=== PATIENT | female | born 1945 | race Caucasian/White ===

== ENCOUNTER 2018-08-05 15:39 | Emergency (ER) | payer MEDICARE, SELFPAY ==
[2018-08-05 15:41] VITALS: BP 183/73; PULSE 64; RESP 18; TEMP 36.8; O2SAT 99; BMI 31.6
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
[2018-08-05 17:00] LABS: Carboxyhemoglobin Frac (CO) 1.3 % (0.0-1.5)
[2018-08-05 17:33] LABS: Mucous, Urine 0 SEEN /hpf (<or=2+); Red Blood Cells-Urine 0 SEEN /hpf (0-5); Squamous Epithelial Cells - UA 0 SEEN /hpf (5-10)
[2018-08-05 17:46] LABS: Color, Urine Yellow (Yellow); Glucose, Dipstick Normal (Normal); Ketone-Dipstick Negative (Negative); Leukocyte Esterase-Dipstick Negative /ul (Negative); Nitrite-Dipstick Negative (Negative); Occult Blood-Urine 50 /ul (Negative); Protein-Dipstick Negative (Negative); Urine Bilirubin Dipstick Negative (Negative); Urine Clarity Sl. Cloudy (Clear); Urine Urobilinogen Normal (Normal)
[2018-08-05 18:04] LABS: Bacteria 3+ /hpf (None Seen); Renal Epithelial Cells 0 SEEN /hpf (0-5); White Blood Cells 10-25 SEEN /hpf (0-5)
--- NOTE | 2018-08-05 18:51 | ED.VISSUMM ---
- ER Visit Summary Date of Service: 08/05/18 Chief Complaint: [] History of Present Illness: The patient is a 73 F [] Physical Examination: [] Test Results: [] Emergency Department Course and Treatment: [] Treatment Plan: [] Disposition: [] Impression: [] This note was generated with [employer] dictation software. It may contain incorrect words, spelling, and punctuation that were not noted in review of the chart prior to signing ED Disposition - Plan for ED Patient: Disposition: Home or Assisted Living Instructions: ED Cephalgia Unspecified, ED UTI Cystitis Female Prescriptions: Nitrofurantoin Macrocrystals [Macrobid] 100 mg PO Q12 #10 cap Referrals: [facility] Doctor,Out of [NON-STAFF] -
[2018-08-05] MEDS: Nitrofurantoin Macrocrystals 100 MG Capsule PO (19:04)
== END 2018-08-05 19:04 | disposition home or self-care (01) ==
PROVIDERS: Emergency Provider Emergency Medicine
DX: N39.0 Urinary tract infection, site not specified (principal); R51 Headache; E11.9 Type 2 diabetes mellitus without complications
CPT/HCPCS: 81001; 82375; 99283